=== PATIENT | female | born 1950 | race Caucasian/White ===

== ENCOUNTER 2016-10-23 17:56 | Emergency (ER) | payer MEDICARE, OTHER ==
[~2016-10-23] VITALS: Ht 160 cm; Wt 106.1 kg
--- NOTE | 2016-10-23 18:13 | NUR ---
ARRIVAL PT ARRIVED AMBULATORY TO ER 7 C/O NOSEBLEED. PT STATES SHE STARTED TAKING MELOXICAM YESTERDAY PRESCRIBED BY CHLOE ESCOBEDO AND BEGAN HAVING NOSE BLEEDS. PT STATES 2 NOSEBLEEDS YESTERDAY AND 4 TODAY. PT APPLYING PRESSURE TO BRIDGE OF NOSE. NO ACUTE DISTRESS NOTED. EDP NOTIFIED OF PT ARRIVAL.
[2016-10-23] MEDS ORDERED: GABA100C7 PO (18:27)
[2016-10-23] MEDS ORDERED: NITR0.4T8 SL (18:27)
[2016-10-23] MEDS ORDERED: ASPI-484 PO (18:27)
[2016-10-23] MEDS ORDERED: TRAM50TA PO (18:27)
[2016-10-23] MEDS ORDERED: ATOR40TA PO (18:27)
[2016-10-23] MEDS ORDERED: GABA300C10 PO (18:27)
[2016-10-23] MEDS ORDERED: METO25TA4 PO (18:27)
[2016-10-23] MEDS ORDERED: LOSA1TAB17 PO (18:27)
[2016-10-23] MEDS ORDERED: TRAZ50TA18 PO (18:27)
[2016-10-23] MEDS ORDERED: CITA20TA5 PO (18:27)
[2016-10-23] MEDS ORDERED: CATAPRES ONE (18:38)
--- NOTE | 2016-10-23 18:38 | ER.PDOC ---
General Chief Complaint: Nosebleed Stated Complaint: NOSE BLEED Time seen by MD: 18:36 Source: patient, family Exam Limitations: no limitations History of Present Illness Initial Comments 66 year old white female with on and off left sided nose bleed since yesterday. Conservative measures of head elevation and pressure helped control the bleeding until tonight. No history of trauma. Timing/Duration: intermittent Location: left nare Severity: mild Prior symptoms/Treatment: Similar symptoms previous Allergies: Coded Allergies: ciprofloxacin (Verified Allergy, Unknown, Nausea, 10/23/16) Home Meds Reported Medications Tramadol Hcl (TRAMADOL HCL) 50 Mg Tablet, 1 TAB PO Q6HR Y for PAIN, #90 TAB 10/23/16 Nitroglycerin (NITROGLYCERIN) 0.4 Mg Tab.subl, 0.4 MG SL PRN Y for CHEST PAIN 10/23/16 Atorvastatin 40MG (LIPITOR 40MG) 40 Mg Tablet, 1 TAB PO HS, #90 TAB 1 Refill 10/23/16 Losartan/Hydrochlorothiazide (LOSARTAN-HCTZ 100-25 MG TAB) 1 Each Tablet, 1 TAB PO DAILY, #30 TAB 5 Refills 10/23/16 Metoprolol Tartrate 25MG (LOPRESSER 25MG) 25 Mg Tablet, 1 TAB PO BID, #180 TAB 1 Refill 10/23/16 Trazodone Hcl (TRAZODONE HCL) 50 Mg Tablet, 50 MG PO HS, TABLET 10/23/16 Gabapentin (GABAPENTIN) 100 Mg Capsule, 1 CAP PO TID, #90 CAP 2 Refills 10/23/16 Citalopram Hydrobromide (CITALOPRAM HBR) 20 Mg Tablet, 1 TAB PO DAILY, #30 TAB 5 Refills 10/23/16 Aspirin (ASPIR 81) 81 Mg Tablet.dr, 1 TAB PO DAILY, #30 TAB 5 Refills 10/23/16 Gabapentin (GABAPENTIN) 300 Mg Capsule, 300 MG PO HS, CAPSULE 10/23/16 Constitutional: denies no symptoms reported, denies see HPI, denies chills, denies diaphoresis, denies fever, denies malaise, denies weakness, denies other Eyes: denies no symptoms reported, denies see HPI, denies blindness, denies blurred vision, denies drainage, denies decreased acuity, denies foreign body sensation, denies inflammation, denies pain, denies photophobia, denies previous injury, denies shadows, denies tunnel vision, denies vision change, denies contact lenses, denies glasses, denies other Ears: denies no symptoms reported, denies see HPI, denies dizziness, denies pain, denies tinnitus, denies bloody discharge, denies clear discharge, denies purulent discharge, denies serosanguinous discharge, denies previous injury, denies other Mouth: denies no symptoms reported, denies see HPI, denies clots, denies loose teeth, denies pain, denies swelling, denies bloody discharge, denies clear discharge, denies purulent discharge, denies serosanguinous discharge, denies previous injury, denies other Throat: denies no symptoms reported, denies see HPI, denies pain, denies swelling, denies discharge, denies neck stiffness, denies hoarse, denies aphonia , denies muffled, denies painful swallowing, denies difficulty with fluids, denies previous injury, denies other Respiratory: denies no symptoms reported, denies see HPI, denies cough, denies orthopnea, denies shortness of breath, denies stridor, denies wheezing, denies other Cardiovascular: denies no symptoms reported, denies see HPI, denies chest pain , denies edema, denies palpitations, denies syncope, denies other Gastrointestinal: denies no symptoms reported, denies see HPI, denies abdominal pain, denies constipation, denies diarrhea, denies nausea, denies vomiting, denies other Musculoskeletal: denies no symptoms reported, denies see HPI, denies back pain , denies gout, denies joint pain, denies joint swelling, denies muscle pain, denies muscle stiffness, denies neck pain, denies other Skin: denies no symptoms reported, denies see HPI, denies change in color, denies change in hair/nails, denies dryness, denies lesions, denies lumps, denies rash, denies other Neurological: denies no symptoms reported, denies see HPI, denies anxiety, denies depressed, denies emotional problems, denies headache, denies numbness, denies paresthesia, denies pre-existing deficit, denies seizure, denies tingling , denies tremors, denies weakness, denies other Hematologic/Lymphatic: denies no symptoms reported, denies see HPI, denies anemia, denies blood clots, denies easy bleeding, denies easy bruising, denies swollen glands, denies other Past Medical History Medical History: cardiac problems, diabetes, hypertension Surgical History: cardiac cath, appendectomy, hysterectomy, stent LMP (females 10-50): hysterectomy Social History Smoking: non-smoker Alcohol Use: none Drug Use: none Physical Exam General Appearance: alert, no distress Nose: active bleeding (R) (anterior nostril) Head/Neck: atraumatic, thyroid nml Eyes/Ears: eyes nml inspection, PERRL, no nystagmus, TM nml Mouth: lips, gums nml, pharynx nml NEURO/PSYCH: oriented X3, mood/effect nml Respiratory: no resp. distress CVS: reg. rate & rhythm, heart sounds nml Abdomen: non-tender, no organomegaly Skin Exam: Normal Color, Warm/Dry Results/Orders Results/Orders Laboratory Tests Test 10/23/16 18:39 White Blood Count 6.2 10^3/uL (4.5-11.0) Red Blood Count 4.78 10^6/uL (4.00-5.20) Hemoglobin 14.1 g/dL (12.0-15.0) Hematocrit 43.1 % (36.0-46.0) Mean Corpuscular Volume 90.2 fL (78-100) Mean Corpuscular Hemoglobin 29.5 pg (26-34) Mean Corpuscular Hemoglobin Concent 32.7 g/dL (33-37) Red Cell Distribution Width 14.4 % (11.5-14.5) Platelet Count 226 10^3/uL (150-400) Mean Platelet Volume 8.9 fL (7.8-11.0) Neutrophils (%) (Auto) 52.2 % (41.0-85.0) Lymphocytes (%) (Auto) 37.4 % (24.0-44.0) Monocytes (%) (Auto) 6.8 % (5.0-12.0) Neutrophils # (Auto) 3.2 10^3/uL (1.8-7.7) Lymphocytes # (Auto) 2.3 10^3/uL (1.0-4.8) Monocytes # (Auto) 0.4 10^3/uL (0.3-0.8) Absolute Immature Granulocyte (auto 0.01 10^3 u/L (0-2) Eosinophils % 2.9 % (0.0-5.0) Basophils % 0.5 % (0.0-0.2) Basophils # 0.0 10^3/uL (0.0-0.1) Eosinophil Count 0.2 10^3/uL (0.0-0.2) Percent Immature Gran (Cell Imm) 0.20 % (0.00-0.50) Administered Medications Medications (Trade) Dose Ordered Sig/Rylee Route PRN Reason Start Time Stop Time Status Last Admin Dose Admin Clonidine (Catapres) 0.2 mg STAT STAT PO 10/23/16 18:39 10/23/16 18:40 DC 10/23/16 18:42 Departure Time of Disposition: 19:03 Impression: Primary Impression: Epistaxis Referrals: CHLOE ESCOBEDO [employer] [employer] (PCP) PRIMARY CARE PROVIDER MAYA DUMONT MD Oct 23, 2016 18:38
[2016-10-23] MEDS ORDERED: CATAPRES PO STA (18:39)
--- NOTE | 2016-10-23 18:43 | NUR ---
ICE PACK APPLIED TO NOSE
[2016-10-23 18:58] LABS: BASOPHIL % 0.5 % (0.0-0.2); EOSINOPHIL # 0.2 10^3/uL (0.0-0.2); EOSINOPHIL % 2.9 % (0.0-5.0); HEMOGLOBIN 14.1 g/dL (12.0-15.0); LYMPHOCYTES # 2.3 10^3/uL (1.0-4.8); LYMPHOCYTES % 37.4 % (24.0-44.0); MEAN CELL HGB 29.5 pg (26-34); MEAN CELL HGB CONCENTRATION 32.7 g/dL (33-37); MEAN CORP VOLUME 90.2 fL (78-100); MEAN PLATELET VOLUME 8.9 fL (7.8-11.0); MONOCYTES # 0.4 10^3/uL (0.3-0.8); MONOCYTES % 6.8 % (5.0-12.0); NEUTROPHIL # 3.2 10^3/uL (1.8-7.7); NEUTROPHILS % 52.2 % (41.0-85.0); RED CELL DISTRIBUTION WIDTH 14.4 % (11.5-14.5); WHITE BLOOD CELL 6.2 10^3/uL (4.5-11.0)
[2016-10-23 19:28] LABS: CALCIUM 11.3 mg/dL (8.4-10.5); CARBON DIOXIDE 25.2 mmol/L (20.0-32)
[2016-10-23] MEDS ORDERED: LOPRESSER PO STA (20:49)
[2016-10-23] MEDS ORDERED: LOPRESSER ONE (20:51)
[2016-10-23] MEDS ORDERED: APRESOLINE IM STA (21:30)
[2016-10-23] MEDS ORDERED: APRESOLINE ONE (22:09)
[2016-10-24 00:58] VITALS: BP 134/82
== END 2016-10-24 01:08 | disposition home or self-care (01) ==
LOC: ER 17:56
DX: R04.0 Epistaxis (principal); I10 Essential (primary) hypertension; E11.9 Type 2 diabetes mellitus without complications; Z79.899 Other long term (current) drug therapy; Z79.82 Long term (current) use of aspirin; Z88.1 Allergy status to other antibiotic agents
CPT/HCPCS: 36415; 80053; 85025; 85610; 85730; 96372; 99284; J0360